=== PATIENT | female | born 1985 | race Caucasian/White ===

== ENCOUNTER → 2017-04-28 | Outpatient (CLI) | payer BC ==
--- NOTE | 2017-04-28 13:28 | MM ---
Reason for exam: clinical finding. Baseline mammogram. History: Patient history of other cancer. Family history of breast cancer in grandmother and breast cancer in 2 aunts. Indicated problem(s): pain in the left breast. Physical Findings: Nurse did not find any significant physical abnormalities on exam. MG Diagnostic Mammo w CAD TAMMY Bilateral CC and MLO view(s) were taken. XCCL view(s) were taken of the right breast. There are scattered fibroglandular densities. There is no discrete abnormality. These results were verbally communicated with the patient and result sheet given to the patient on 04/28/17. ASSESSMENT: Negative, BI-RAD 1 RECOMMENDATION: Routine screening mammogram of both breasts at age 41. Manage patient on a clinical basis bilateral pain.
== END | disposition home or self-care (01) ==
LOC: RADMAMWWP 12:28
PROVIDERS: ATTEND Obstetrics & Gynecology
DX: N64.4 Mastodynia (principal)

== ENCOUNTER → 2020-09-20 | Outpatient (CLI) | payer BC ==
--- NOTE | 2020-09-20 11:45 | MM ---
Reason for exam: clinical finding. Last mammogram was performed 3 years and 5 months ago. History: Patient history of other cancer. Family history of breast cancer in grandmother and breast cancer in 2 aunts. Physical Findings: Nurse did not find any significant physical abnormalities on exam. MG 3D Diag Mammo W/Cad TAMMY Bilateral CC, MLO, and XCCL view(s) were taken. Prior study comparison: April 28, 2017, bilateral MG diagnostic mammo w CAD TAMMY. There is no discrete abnormality including area of concern left breast. These results were verbally communicated with the patient and result sheet given to the patient on 09/20/20. ASSESSMENT: Benign, BI-RAD 2 RECOMMENDATION: Routine screening mammogram of both breasts in 1 year. Manage on a clinical basis with regard to discharge and pain.
--- NOTE | 2020-09-20 11:46 | USB ---
Reason for exam: clinical finding. History: Patient history of other cancer. Family history of breast cancer in grandmother and breast cancer in 2 aunts. US Breast Limited LT Left limited breast ultrasound including focal area of concern, retroareolar and axilla demonstrates no cystic or solid lesion seen. These results were verbally communicated with the patient and result sheet given to the patient on 09/20/20. ASSESSMENT: Benign, BI-RAD 2 RECOMMENDATION: Routine screening mammogram of both breasts in 1 year. Manage patient on a clinical basis.
== END | disposition home or self-care (01) ==
LOC: RADUSWWP 09:25
PROVIDERS: ATTEND Family Medicine
DX: N64.4 Mastodynia (principal)
CPT/HCPCS: 77062; 77066

== ENCOUNTER → 2023-04-29 | Outpatient (CLI) | payer BC ==
[2023-04-29 15:52] LABS: Basophils # (A) 0.07 X 10*3/uL (0.00-0.10); Eosinophils # (A) 0.26 X 10*3/uL (0.04-0.35); Eosinophils % (A) 3.7 %; HCT 42.4 % (37.2-46.3); Lymphocytes # (A) 1.73 X 10*3/uL (0.90-5.00); Lymphocytes % (A) 24.4 %; MCH 28.9 pg (27.0-32.0); MCV 87.6 FL (80.0-97.0); Mean Platelet Volume 11.2 FL (9.5-12.2); Monocytes # (A) 0.46 X 10*3/uL (0.20-1.00); Monocytes % (A) 6.5 %; NRBC Per 100 WBC 0 X 10*3/uL (0.00-0.01); Neutrophils # (A) 4.54 X 10*3/uL (1.80-7.70); Platelet Count 260 X 10*3/uL (140-440); RBC 4.84 X 10*6/uL (4.10-5.20); RDW 12.5 % (11.5-14.5); WBC 7.09 X 10*3/uL (4.50-10.00)
== END | disposition home or self-care (01) ==
LOC: LABPAT 09:36
PROVIDERS: ATTEND Obstetrics & Gynecology
DX: Z01.812 Encounter for preprocedural laboratory examination (principal)
CPT/HCPCS: 85025

== ENCOUNTER 2023-04-30 05:48 | Day surgery (SDC) | payer BC ==
[2023-04-28 17:13] VITALS: BMI 27.9
--- NOTE | 2023-04-29 08:06 | P.HPOB ---
History of Present Illness H&P Date: 04/29/23 Chief Complaint: Menorrhagia. This patient is a pleasant 37-year-old 3 para 3 female who presented to my office requesting treatment of menorrhagia. Patient's evaluation has included an ultrasound which was normal. I did discuss hormonal treatment options for her and she prefers to have surgical treatment. Patient has had a tubal ligation for control. Review of Systems Genitourinary: Reports as per HPI, Reports menorrhagia Menstruation: Reports as per HPI Past Medical History Past Medical History: Cancer Additional Past Medical History / Comment(s): irregular and heavy menses, melanoma left leg 2010-no chemo. History of Any Multi-Drug Resistant Organisms: None Reported Past Surgical History: Appendectomy, Back Surgery Additional Past Surgical History / Comment(s): cancerous moles removed Past Anesthesia/Blood Transfusion Reactions: No Reported Reaction Additional Past Anesthesia/Blood Transfusion Reaction / Comment(s): no hx blood transfusion Smoking Status: Never smoker - Past Family History Mother Family Medical History: No Reported History Medications and Allergies Home Medications Medication Instructions Recorded Confirmed Type No Known Home Medications 04/28/23 04/28/23 History Allergies Allergy/AdvReac Type Severity Reaction Status Date / Time No Known Allergies Allergy Verified 04/28/23 16:58 Exam Intake and Output 04/28/23 04/29/23 04/29/23 22:59 06:59 14:59 Other: Weight 73.936 kg - OBG Physical Exam Abdomen: bowel sounds normal, no diffuse tenderness, no bruit present, no guarding noted, no hepatomegaly, no splenomegaly, no mass Vulva: both: normal Vagina: normal moisture, no discharge Cervix: no lesion, no discharge Uterus: normal size, normal contour Results Ultrasound done on February 25 showed a normal uterus with endometrial thickening of 0.8 cm Assessment and Plan Assessment: This is a pleasant 37-year-old 3 para 3 female with long-standing menorrhagia requesting endometrial ablation for treatment. Plan is hysteroscopy, D&C, and NovaSure endometrial ablation. Patient understands the risk of the surgery including risks of infection, bleeding, possible uterine perforation and/or thermal injury. All the patient's questions are answered and a written consent is obtained. (1) Menorrhagia Status: Acute Code(s): N92.0 - EXCESSIVE AND FREQUENT MENSTRUATION WITH REGULAR CYCLE SNOMED Code(s): 454280597
[~2023-04-30 05:48] MED LIST: Pre Op ABX Message 1 EACH MISC MISCELLANE ONE
[2023-04-30] MEDS ORDERED: DEXAMETHASONE SOD PHOSPHATE 4 MG/ML 1 ML VIAL IV ONE (06:05)
[2023-04-30] MEDS ORDERED: LACTATED RINGERS 1,000 ML IV SCH (06:05)
[2023-04-30] MEDS ORDERED: ONDANSETRON 4 MG/2 ML VIAL IVP ONE (06:05)
[2023-04-30 06:22] VITALS: BP 137/86; PULSE 125; RESP 14; TEMP 99.4
[2023-04-30] MEDS ORDERED: HYDROmorphone 0.5 MG/0.5 ML SYRINGE IVP PRN (07:00)
--- NOTE | 2023-04-30 08:00 | P.PN ---
Progress Note - Text Progress Note Date: 04/30/23 Patient presents this morning for endometrial ablation secondary to menorrhagia. Preoperative vital signs show she had a low-grade temperature and tachycardia 125. Due to concern for possible infection, after discussion with anesthesia is felt best to cancel her elective surgery until she was evaluated by her PCP or any illness resolved. When her condition resolves her surgery rescheduled different date. I did explain this to the patient she understood.
== END 2023-04-30 06:47 | disposition home or self-care (01) ==
LOC: OR 05:48
PROVIDERS: ATTEND Obstetrics & Gynecology
DX: Z53.8 Procedure and treatment not carried out for other reasons (principal); N92.0 Excessive and frequent menstruation with regular cycle; Z85.820 Personal history of malignant melanoma of skin; Z90.49 Acquired absence of other specified parts of digestive tract; Z98.890 Other specified postprocedural states; Z79.899 Other long term (current) drug therapy

== ENCOUNTER → 2023-07-07 | Outpatient (CLI) | payer BC ==
[2023-07-08 02:25] LABS: Basophils # (A) 0.06 X 10*3/uL (0.00-0.10); Eosinophils # (A) 0.26 X 10*3/uL (0.04-0.35); Eosinophils % (A) 4.1 %; HCT 39.6 % (37.2-46.3); Lymphocytes % (A) 27.1 %; MCH 28.6 pg (27.0-32.0); MCHC 32.8 g/dL (32.0-37.0); Monocytes # (A) 0.42 X 10*3/uL (0.20-1.00); Monocytes % (A) 6.7 %; NRBC Per 100 WBC 0 X 10*3/uL (0.00-0.01); Neutrophils # (A) 3.81 X 10*3/uL (1.80-7.70); Neutrophils % (A) 60.8 %; Platelet Count 256 X 10*3/uL (140-440); RBC 4.55 X 10*6/uL (4.10-5.20); RDW 12.5 % (11.5-14.5); WBC 6.27 X 10*3/uL (4.50-10.00)
== END | disposition home or self-care (01) ==
LOC: LABPAT 14:41
PROVIDERS: ATTEND Obstetrics & Gynecology
DX: Z01.812 Encounter for preprocedural laboratory examination (principal)
CPT/HCPCS: 85025

== ENCOUNTER → 2023-07-09 | Day surgery (SDC) | payer BC ==
--- NOTE | 2023-07-08 12:47 | P.HPOB ---
History of Present Illness H&P Date: 07/08/23 Chief Complaint: Menorrhagia. This patient is a pleasant 37-year-old 3 para 3 female who presented to me with complaints of long-standing menorrhagia. Had an ultrasound performed which was normal and I did discuss treatment options with her. She has had a tubal ligation for control and she does not want hormonal management of her bleeding. Patient is requesting endometrial ablation for treatment. Review of Systems Genitourinary: Reports as per HPI, Reports menorrhagia Menstruation: Reports period heavy Past Medical History Past Medical History: Cancer Additional Past Medical History / Comment(s): irregular and heavy menses, melanoma left leg 2010-no chemo. History of Any Multi-Drug Resistant Organisms: None Reported Past Surgical History: Appendectomy, Back Surgery, Section, Tubal Ligation Additional Past Surgical History / Comment(s): Patient has a history of melanoma on her back. Past Anesthesia/Blood Transfusion Reactions: No Reported Reaction Additional Past Anesthesia/Blood Transfusion Reaction / Comment(s): no hx blood transfusion Past Psychological History: No Psychological Hx Reported Smoking Status: Never smoker Past Alcohol Use History: None Reported Past Drug Use History: None Reported - Past Family History Mother Family Medical History: No Reported History Medications and Allergies Home Medications Medication Instructions Recorded Confirmed Type Ibuprofen [Motrin] 600 mg PO Q6HR PRN #40 tab 04/30/23 07/02/23 Rx Allergies Allergy/AdvReac Type Severity Reaction Status Date / Time No Known Allergies Allergy Verified 07/02/23 14:47 Exam - OBG Physical Exam Abdomen: bowel sounds normal, no diffuse tenderness, no bruit present, no guarding noted, no hepatomegaly, no splenomegaly, no mass Vulva: both: normal Vagina: normal moisture, no discharge Cervix: no lesion, no discharge Uterus: normal size, normal contour Results Transvaginal ultrasound on February 25 showed normal uterus and endometrium. Assessment and Plan Assessment: This is a pleasant 37-year-old 3 para 3 female with long-standing menorrhagia and normal evaluation is requesting trial of endometrial ablation for treatment. Plan is hysteroscopy, D&C, NovaSure endometrial ablation. Patient understands this surgery and risks and risks of infection, bleeding, possible uterine perforation, and/or thermal injury. All the patient's questions are answered and a written consent is obtained. (1) Menorrhagia Status: Chronic Code(s): N92.0 - EXCESSIVE AND FREQUENT MENSTRUATION WITH REGULAR CYCLE SNOMED Code(s): 312262988
[~2023-07-09] MED LIST changes: +DEXAMETHASONE SOD PHOSPHATE 4 MG/ML 1 ML VIAL IVP ONE; +HYDROmorphone 0.5 MG/0.5 ML SYRINGE IVP PRN; +KETOROLAC 15 MG/ML 1 ML VIAL ONE; +LACTATED RINGERS 1,000 ML IV SCH; +LIDOCAINE 1% INJ 10MG/ML (20 ML MDV) ONE; +MIDAZOLAM 2 MG/2 ML VIAL IV PRN; +MIDAZOLAM 2 MG/2 ML VIAL ONE; +ONDANSETRON 4 MG/2 ML VIAL ONE; +PROPOFOL 10 MG/ML 20 ML VIAL IV ONE; +fentaNYL (PF) 50 MCG/ML 2 ML AMP ONE
--- NOTE | 2023-07-09 08:16 | P.OP ---
Date of Procedure: 07/09/23 Preoperative Diagnosis: Menorrhagia Postoperative Diagnosis: Same Procedure(s) Performed: #1: Hysteroscopy. #2: Dilation and curettage. #3: NovaSure endometrial ablation Anesthesia: other (LMA) Surgeon: Byron Nicholas Estimated Blood Loss (ml): 10 Urine output (ml): 25 Pathology: other (Uterine curettings) Condition: stable Disposition: PACU Indications for Procedure: Please see dictated H&P for intimate details of this patient's admission. In brief summary this pleasant 37-year-old multiparous patient with long-standing menorrhagia requesting NovaSure endometrial ablation. Patient understands this procedure and risks and risks of infection, bleeding, possible uterine perforation, and/or thermal injury. All the patient's questions are answered and a written consent is obtained. Operative Findings: This patient had a normal-appearing endometrial cavity Description of Procedure: This patient is taken to the operating room where she is laid in the supine position. She subsequently undergoes general anesthesia without incident. An adequate level of anesthesia she's placed in the dorsal lithotomy position. She has a vaginal prep and drape in usual fashion. Examination under anesthesia shows a mid position uterus of normal size. Weighted speculum was placed in posterior vagina. I drain the bladder for 25 mL of clear urine. I then place an Allis clamp and the anterior lip of the cervix. This uterus is then sounded to 8.5 cm. With this done the cervix is dilated gently to allow the hysteroscope easily and the uterine cavity. Hysteroscopy is performed and the uterine length is calculated at 6.0 cm. There are no evidence of any polyps or fibroids. Hysteroscope was then removed. The cervix is dilated gently more to allow a small curette easily uterine cavity. A gentle but thorough 4 quadrant curettage is then done. With this completed the NovaSure device is then opened it is seated at a length of 6.0 cm. It opens up to a width of 3.5 cm. After passing the cavity integrity test is enabled at 116 W for 68 seconds. NovaSure device is then removed and appears to be intact. Hysteroscopy is performed again and the uterine cavity appears to be ablated up to the endocervix. Excellent results are noted. This done the procedure is ended. The Allis clamp and weighted speculum removed. All counts are correct 3. There are no complications. Patient is taken to the recovery room in satisfactory condition.
[2023-07-09 08:39] VITALS: RESP 16; TEMP 97.3
[2023-07-09 09:28] VITALS: BP 127/81; PULSE 81
== END | disposition home or self-care (01) ==
LOC: OR 06:49
PROVIDERS: ATTEND Obstetrics & Gynecology
DX: N85.00 Endometrial hyperplasia, unspecified (principal); N92.0 Excessive and frequent menstruation with regular cycle; K21.9 Gastro-esophageal reflux disease without esophagitis; Z90.49 Acquired absence of other specified parts of digestive tract; Z98.51 Tubal ligation status; Z98.890 Other specified postprocedural states; Z79.899 Other long term (current) drug therapy; Z85.820 Personal history of malignant melanoma of skin
CPT/HCPCS: 81025; 88305; 58563; J2250; J1100; J2405; J2001; J3010; J1885; J2704